=== PATIENT | male | born 1990 | race Caucasian/White ===

== ENCOUNTER 2018-09-16 19:32 | Emergency (ER) | payer OTHER ==
[~2018-09-16] VITALS: Ht 177.8 cm; Wt 83.9 kg
[2018-09-16 19:53] VITALS: Ht 177.8 cm; Wt 83.9 kg
[2018-09-16 20:27] VITALS: BP 142/87
== END 2018-09-16 20:27 | disposition home or self-care (01) ==
LOC: ED 19:32
DX: T63.301A Toxic effect of unspecified spider venom, accidental (unintentional), initial encounter (principal); L03.115 Cellulitis of right lower limb; I10 Essential (primary) hypertension; E11.9 Type 2 diabetes mellitus without complications; Y92.89 Other specified places as the place of occurrence of the external cause
CPT/HCPCS: 82962

== ENCOUNTER 2019-09-17 20:37 | Emergency (ER) | payer OTHER ==
[~2019-09-17] VITALS: Ht 180.3 cm; Wt 83.5 kg
[2019-09-17 20:52] VITALS: Ht 180.3 cm; Wt 83.5 kg
[2019-09-17 23:38] VITALS: BP 167/94
== END 2019-09-17 23:38 | disposition home or self-care (01) ==
LOC: ED 20:37
DX: S62.511A Displaced fracture of proximal phalanx of right thumb, initial encounter for closed fracture (principal); V49.88XA Car occupant (driver) (passenger) injured in other specified transport accidents, initial encounter; Y93.89 Activity, other specified; Y92.89 Other specified places as the place of occurrence of the external cause; Y99.8 Other external cause status
CPT/HCPCS: J1885; Q0092